=== PATIENT | female | born 1985 | race Caucasian/White ===

== ENCOUNTER 2018-01-19 07:57 | Day surgery (SDC) | payer BC ==
[~2018-01-19 07:57] MED LIST: Lactated Ringers 1,000 ML IV SCH; Sodium Chloride 0.9% 10 ML Syringe FLUSH PRN; Sodium Chloride 0.9% 2.5 ML Syringe FLUSH PRN
--- NOTE | 2018-01-19 09:54 | PCM.PREANE ---
Preanesthetic Assessment - Anesthesia/Transfusion/Family Hx Anesthesia History: Prior Anesthesia Without Reaction Family History of Anesthesia Reaction: No Transfusion History: No Prior Transfusion(s) Intubation History: Unknown - Review of Systems General: No Symptoms Pulmonary: No Symptoms Cardiovascular: No Symptoms Gastrointestinal: No Symptoms Neurological: No Symptoms Other: Reports: None - Physical Assessment O2 Sat by Pulse Oximetry: 100 Respiratory Rate: 16 Vital Signs: Last Vital Signs Temp 36.2 C 01/19/18 09:14 Pulse 80 01/19/18 09:14 Resp 16 01/19/18 09:14 BP 164/71 H 01/19/18 09:14 Pulse Ox 100 01/19/18 09:14 Height: 1.7 m Weight: 107.048 kg ASA Class: 2 Mental Status: Alert & Oriented x3 Airway Class: Mallampati = 2 Dentition: Reports: Normal Dentition Thyro-Mental Finger Breadths: 3 Mouth Opening Finger Breadths: 2 ROM/Head Extension: Full Lungs: Clear to Auscultation, Normal Respiratory Effort Cardiovascular: Regular Rate, Regular Rhythm - Allergies Allergies/Adverse Reactions: Allergies Allergy/AdvReac Type Severity Reaction Status Date / Time No Known Allergies Allergy Verified 01/14/18 16:38 - Blood Blood Available: No - Anesthesia Plan Pre-Op Medication Ordered: None - Acknowledgements Anesthesia Type Planned: General Anesthesia Pt an Appropriate Candidate for the Planned Anesthesia: Yes Alternatives and Risks of Anesthesia Discussed w Pt/Guardian: Yes Pt/Guardian Understands and Agrees with Anesthesia Plan: Yes PreAnesthesia Questionnaire HEENT History: Reports: Other (See Below) Other HEENT History: wears glasses Genitourinary History: Reports: None 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 [No Known Home Meds] 01/14/18 [History] - CURRENT (IN HOUSE) MEDS Current Meds: Current Medications Lactated Ringer's (Ringers, Lactated) 1,000 mls @ 125 mls/hr IV ASDIRECTED [facility] Last Admin: 01/19/18 09:12 Dose: 125 mls/hr Sodium Chloride (Saline Flush) 10 ml FLUSH ASDIRECTED PRN PRN Reason: Keep Vein Open Sodium Chloride (Saline Flush) 2.5 ml FLUSH ASDIRECTED PRN PRN Reason: Keep Vein Open
[2018-01-19] MEDS ORDERED: Propofol 200 MG/20 ML SDV ONE (11:56)
[2018-01-19] MEDS ORDERED: fentaNYL 100 MCG/2 ML SDV ONE (11:56)
[2018-01-19] MEDS ORDERED: Midazolam 1 MG/ML 2 ML SDV ONE (11:56)
[2018-01-19] MEDS ORDERED: Lidocaine 2% 5 ML SDV ONE (11:56)
[2018-01-19] MEDS ORDERED: fentaNYL 100 MCG/2 ML SDV IVPUSH PRN (12:04)
[2018-01-19] MEDS ORDERED: Ketorolac 30 MG/ML SDV ONE (13:17)
--- NOTE | 2018-01-19 13:40 | PCM.OPNOTE ---
- General Post-Op/Procedure Note Date of Surgery/Procedure: 01/19/18 Operative Procedure(s): Hysteroscopic removal of IUD Findings: IUD with string located within endometrial cavity EUA showed normal sized anteverted uterus Pre Op Diagnosis: Retained IUD Post-Op Diagnosis: Retained IUD Anesthesia Technique: MAC Primary Surgeon: Lemuel Girard Anesthesia Provider: Farzana Felix Pathology: none Fluid Replacement, Intraop: 1,250 EBL in mLs: 5 Complications: None Condition: Good
--- NOTE | 2018-01-19 13:46 | PCM.POSTAN ---
POST ANESTHESIA ASSESSMENT - MENTAL STATUS Mental Status: Alert, Oriented - RESPIRATORY Respiratory Status: Respiratory Rate WNL, Airway Patent, O2 Saturation Stable - CARDIOVASCULAR CV Status: Pulse Rate WNL, Blood Pressure Stable - GASTROINTESTINAL GI Status: No Symptoms - PAIN Pain Score: 0 - POST OP HYDRATION Hydration Status: Adequate & Stable
--- NOTE | 2018-01-19 14:04 | PCM48HPAN ---
Post Anesthesia Note - EVALUATION WITHIN 48HRS OF ANESTHETIC Vital Signs in Normal Range: Yes Patient Participated in Evaluation: Yes Respiratory Function Stable: Yes Airway Patent: Yes Cardiovascular Function Stable: Yes Hydration Status Stable: Yes Pain Control Satisfactory: Yes Nausea and Vomiting Control Satisfactory: Yes Mental Status Recovered: Yes Resp Rate: 18 - COMMENTS/OBSERVATIONS Free Text/Narrative:: Pt awake and has no complaints. VSS.
--- NOTE | 2018-01-22 01:28 | OR ---
SURGEON: DOMINGA BORJAS DATE OF PROCEDURE: 01/19/2018 PREOPERATIVE DIAGNOSIS: Retained IUD. POSTOPERATIVE DIAGNOSIS: Retained IUD. ANESTHESIA: MAC. ESTIMATED BLOOD LOSS: 5 mL. IV FLUIDS: 1500. BRIEF HISTORY: Patient visited the clinic for IUD removal. The IUD string was not visualized. An attempt was made to remove the IUD with the IUD hook, however, this was unsuccessful. Patient was given the option for office hysteroscopic removal vs removal in the OR. Patient wanted removal in the OR She was explained the risks of infection, bleeding, and damage to surrounding structures and also the added risk of anaesthesia. She understood r/b/a and signed consent DESCRIPTION OF PROCEDURE: The patient was taken to the OR, where MAC anesthesia was performed without difficulty. The patient was placed in dorsal lithotomy position with the Michele stirrups. Examination under anesthesia revealed a normal-sized anteverted uterus. The patient was then prepared and draped in the normal sterile fashion. A weighted speculum was placed in the posterior aspect of the vagina. An Allis forceps was used to grab the anterior lip of the cervix. The uterus was then carefully dilated to accommodate the 5 mm hysteroscope. A 5 mm 30-degree hysteroscope was introduced under direct visualization. The uterus was then distended with normal saline. The IUD was found and was then grasped with the hysteroscopic grasper. The hysteroscopic grasper and the hysteroscope were withdrawn, and the IUD was retrieved. The IUD was handed over for pathology. The patient tolerated the procedure well. All instrument and lap counts were correct x2. The patient was awakened from the MAC anesthesia and was taken to the recovery room in stable condition. The patient will follow up in [address] Sotelo. LICO / MATT /[id number] MAKENNA
== END 2018-01-19 14:31 | disposition home or self-care (01) ==
LOC: MW.SDS 07:57
PROVIDERS: ATTEND Obstetrics & Gynecology
DX: T83.32XA Displacement of intrauterine contraceptive device, initial encounter (principal); Z79.899 Other long term (current) drug therapy; F17.210 Nicotine dependence, cigarettes, uncomplicated; X58.XXXA Exposure to other specified factors, initial encounter
CPT/HCPCS: 36415; 58562; 84703; 85025; 86850; 86900; 86901; J1885; J2250; J3010; J7120; 00940; 88300; J2704